=== PATIENT | male | born 1975 | race Caucasian/White ===

== ENCOUNTER 2018-08-13 15:51 | Outpatient (CLI) | payer BC | END 2018-08-13 17:51 | disposition home or self-care (01) | LOC: RAD 15:51 | DX: R60.0 Localized edema (principal) | CPT/HCPCS: 93925; 93970 ==

== ENCOUNTER 2018-08-25 14:36 | Outpatient (RCR) | payer BC | END 2018-09-04 | disposition home or self-care (01) | LOC: WCC 14:36 | DX: L97.321 Non-pressure chronic ulcer of left ankle limited to breakdown of skin (principal); I87.2 Venous insufficiency (chronic) (peripheral); E11.622 Type 2 diabetes mellitus with other skin ulcer; Z90.49 Acquired absence of other specified parts of digestive tract | CPT/HCPCS: 11043; 29580 ==

== ENCOUNTER 2018-09-10 14:00 | Outpatient (RCR) | payer BC | END 2018-10-02 | disposition home or self-care (01) | LOC: WCC 14:00 | DX: L97.321 Non-pressure chronic ulcer of left ankle limited to breakdown of skin (principal); I87.2 Venous insufficiency (chronic) (peripheral); E11.622 Type 2 diabetes mellitus with other skin ulcer; Z90.49 Acquired absence of other specified parts of digestive tract; E11.9 Type 2 diabetes mellitus without complications ==